=== PATIENT | female | born 1985 | race American Indian/Alaskan Native ===

== ENCOUNTER 2017-06-18 08:47 | Emergency (ER) | payer MEDICAID ==
[2017-06-18 09:27] LABS: Basophils % (Auto) 0.8 % (0.0-1.8); Eosinophils % (Auto) 0.1 % (0.0-4.3); Hematocrit 40.3 % (30.3-42.9); Hemoglobin 13.9 gm/dl (10.1-14.3); Mean Corpuscular HGB Conc 35 % (30-34); Mean Corpuscular Hemoglobin 33 pg (28-32); Mean Corpuscular Volume 96 fl (79-97); Platelet Count 262 K/mm3 (140-440); Red Blood Count 4.19 M/mm3 (3.65-5.03); Red Cell Distribution Width 12.5 % (13.2-15.2); White Blood Count 7.2 K/mm3 (4.5-11.0)
--- NOTE | 2017-06-18 09:36 | Emergency Department Report ---
Chief Complaint: Psych Stated Complaint: NOT EATING AND SLEEPING FOR 5 DAYS Time Seen by Provider: 06/18/17 09:31 - HPI History of Present Illness: patient is a 32 y/o female who presents due to insomnia and anorexia x 5 days. Patient had no medical or psych history. Patient was brought in by her mother. - ROS Review of Systems: no fever, no chill, decreased appetite. psych- hallucinations. - Exam Vital Signs: Vital Signs 06/18/17 09:03 Temperature 98.7 F Pulse Rate 87 Respiratory 16 Rate Blood Pressure 119/89 O2 Sat by Pulse 98 Oximetry Physical Exam: patient is alert but not oriented to time or situation. patient was laughing inappropriately in triage. patient could not answer any questions due to confusions. MSE screening note: Focused history and physical exam performed. Due to findings the following was ordered: ED Medical Decision Making - Lab Data Result diagrams: 06/18/17 09:12 - Medical Decision Making mental health pack was ordered. ED Disposition for MSE Condition: Stable
[2017-06-18 09:47] LABS: Anion Gap 23 mmol/L; BUN/Creatinine Ratio 20; Blood Urea Nitrogen 16 mg/dL (7-17); Calcium 8.9 mg/dL (8.4-10.2); Carbon Dioxide 21 mmol/L (22-30); Chloride 100.4 mmol/L (98-107); Glucose 83 mg/dL (65-100); Potassium 4.2 mmol/L (3.6-5.0); Sodium 140 mmol/L (137-145)
[2017-06-18 10:25] LABS: Urine Drugs of Abuse Note Disclamer
[2017-06-18 10:36] LABS: Bacteria,Urine 1+ /HPF (Negative); Bilirubin,Urine NEG (Negative); Blood,Urine LG (Negative); Ketones,Urine 80 mg/dL (Negative); Leukocyte Esterase,Urine TR (Negative); Mucus,Urine 3+ /HPF; Nitrite,Urine NEG (Negative); Urobilinogen,Urine < 2.0 mg/dL (<2.0)
[2017-06-18] MEDS ORDERED: ATIVAN IM PRN (10:43)
[2017-06-18] MEDS ORDERED: HALDOL IM PRN (10:43)
--- NOTE | 2017-06-18 10:44 | Emergency Department Report ---
ED General Adult HPI - General Chief complaint: Psych Stated complaint: NOT EATING AND SLEEPING FOR 5 DAYS Time Seen by Provider: 06/18/17 10:35 Source: patient, family, RN notes reviewed Mode of arrival: Ambulatory Limitations: Other (patient is psychotic and disorganized) - History of Present Illness Initial comments: This is a 32-year-old female, the patient is previously unknown to the provider. The patient is accompanied by her mother, Ms. Domitila Mcmanus; [phone] Patient is brought to the hospital by family for agitated behavior, not sleeping , restlessness, and bizarre thoughts. Patient reports that she is not homicidal or suicidal, however she reports that she thinks that she is , and she also states "get this sickness out of me." The symptoms have been constant for the past 5 days, mother reports that she thinks that the patient consumed cannabis. She is especially concerned about "K2." -: Gradual Severity scale (0 -10): 0 Consistency: constant Improves with: none Worsens with: none Associated Symptoms: other (patient is hyperreflexic, agitated, disorganized) - Related Data Home Medications Medication Instructions Recorded Confirmed Last Taken No Known Home Medications [No 06/18/17 06/18/17 Unknown Reported Home Medications] Allergies Allergy/AdvReac Type Severity Reaction Status Date / Time No Known Allergies Allergy Verified 06/18/17 09:09 ED Review of Systems ROS: Stated complaint: NOT EATING AND SLEEPING FOR 5 DAYS Other details as noted in HPI Constitutional: denies: fever Eyes: denies: vision change ENT: denies: epistaxis Respiratory: denies: cough Cardiovascular: as per HPI. denies: chest pain Gastrointestinal: denies: vomiting Genitourinary: as per HPI Musculoskeletal: as per HPI Neurological: confusion Psychiatric: as per HPI ED Past Medical Hx - Past Medical History Previous Medical History?: Yes Hx Hypertension: Yes - Surgical History Past Surgical History?: No - Social History Smoking Status: Never Smoker Substance Use Type: Alcohol - Medications Home Medications: Home Medications Medication Instructions Recorded Confirmed Last Taken Type No Known Home Medications [No 06/18/17 06/18/17 Unknown History Reported Home Medications] ED Physical Exam - General Limitations: Other (patient is disorganized and psychotic) General appearance: alert, in no apparent distress - Head Head exam: Present: atraumatic, normocephalic - Eye Eye exam: Present: normal appearance, PERRL, EOMI, other (visual acuity intact to finger counting, color perception, reading at a close distance). Absent: nystagmus - ENT ENT exam: Present: normal exam, normal orophraynx, mucous membranes moist, normal external ear exam - Neck Neck exam: Present: normal inspection, full ROM. Absent: tenderness, meningismus - Respiratory Respiratory exam: Present: normal lung sounds bilaterally. Absent: respiratory distress, wheezes, rales, rhonchi, stridor, chest wall tenderness, accessory muscle use, decreased breath sounds, prolonged expiratory - Cardiovascular Cardiovascular Exam: Present: regular rate, normal rhythm, normal heart sounds. Absent: bradycardia, tachycardia, irregular rhythm, systolic murmur, diastolic murmur, rubs, gallop - GI/Abdominal GI/Abdominal exam: Present: soft, normal bowel sounds. Absent: distended, tenderness, guarding, rebound, rigid, pulsatile mass - Extremities Exam Extremities exam: Present: normal inspection, full ROM, normal capillary refill. Absent: pedal edema, joint swelling, calf tenderness - Back Exam Back exam: Present: normal inspection, full ROM. Absent: tenderness, CVA tenderness (R), CVA tenderness (L), muscle spasm, paraspinal tenderness, vertebral tenderness - Neurological Exam Neurological exam: Present: alert, normal gait, other (Extraocular movements intact. Tongue midline. No facial droop. Facial sensation intact to light touch in the V1, V2, V3 distribution bilaterally. 5 and 5 strength in 4 extremities.. Sensation is intact to light touch in 4 extremities.). Absent: motor sensory deficit - Psychiatric Psychiatric exam: Present: agitated, manic. Absent: homicidal ideation, suicidal ideation - Skin Skin exam: Present: warm, dry, intact, normal color. Absent: rash ED Course Vital Signs 06/18/17 06/18/17 06/18/17 09:03 10:01 10:13 Temperature 98.7 F 99.4 F Pulse Rate 87 69 92 H Respiratory 16 12 18 Rate Blood Pressure 119/89 Blood Pressure 106/71 [Right] O2 Sat by Pulse 98 100 99 Oximetry 06/18/17 06/18/17 06/18/17 10:14 10:16 10:30 Temperature Pulse Rate 79 Respiratory 18 17 Rate Blood Pressure 96/75 108/66 Blood Pressure [Right] O2 Sat by Pulse 100 100 100 Oximetry 06/18/17 06/18/17 06/18/17 10:46 11:00 11:16 Temperature Pulse Rate 82 74 93 H Respiratory 19 16 13 Rate Blood Pressure 99/66 106/64 98/67 Blood Pressure [Right] O2 Sat by Pulse 100 100 100 Oximetry 06/18/17 06/18/17 06/18/17 11:30 11:46 12:00 Temperature 98.4 F Pulse Rate 86 94 H 99 H Respiratory 12 27 H 16 Rate Blood Pressure 104/57 104/57 104/72 Blood Pressure 104/72 [Right] O2 Sat by Pulse 100 100 100 Oximetry 06/18/17 06/18/17 06/18/17 12:16 12:30 12:46 Temperature Pulse Rate 93 H 92 H 91 H Respiratory 28 H 33 H 15 Rate Blood Pressure 104/72 104/72 104/72 Blood Pressure [Right] O2 Sat by Pulse 100 99 100 Oximetry 06/18/17 06/18/17 06/18/17 13:00 13:16 13:30 Temperature Pulse Rate 88 89 94 H Respiratory 21 22 23 Rate Blood Pressure 104/72 104/72 104/72 Blood Pressure [Right] O2 Sat by Pulse 99 98 98 Oximetry 06/18/17 06/19/17 06/19/17 16:00 09:37 09:39 Temperature 99.3 F 98.4 F Pulse Rate 96 H 108 H Respiratory 15 16 18 Rate Blood Pressure Blood Pressure 101/74 123/81 [Right] O2 Sat by Pulse 100 100 Oximetry 06/19/17 21:00 Temperature 98.8 F Pulse Rate 86 Respiratory 18 Rate Blood Pressure Blood Pressure 130/83 [Right] O2 Sat by Pulse 99 Oximetry ED Medical Decision Making - Lab Data Result diagrams: 06/18/17 09:12 06/18/17 09:12 Vital Signs 06/18/17 06/18/17 06/18/17 09:03 10:01 10:13 Temperature 98.7 F 99.4 F Pulse Rate 87 69 92 H Respiratory 16 12 18 Rate Blood Pressure 119/89 Blood Pressure 106/71 [Right] O2 Sat by Pulse 98 100 99 Oximetry 06/18/17 06/18/17 06/18/17 10:14 10:16 10:30 Temperature Pulse Rate 79 Respiratory 18 17 Rate Blood Pressure 96/75 108/66 Blood Pressure [Right] O2 Sat by Pulse 100 100 100 Oximetry 06/18/17 06/18/17 10:46 11:00 Temperature Pulse Rate 82 74 Respiratory 19 16 Rate Blood Pressure 99/66 106/64 Blood Pressure [Right] O2 Sat by Pulse 100 100 Oximetry Lab Results 06/18/17 06/18/17 06/18/17 Range/Units 09:12 09:12 09:12 WBC 7.2 (4.5-11.0) K/mm3 RBC 4.19 (3.65-5.03) M/mm3 Hgb 13.9 (10.1-14.3) gm/dl Hct 40.3 (30.3-42.9) % MCV 96 (79-97) fl MCH 33 H (28-32) pg MCHC 35 H (30-34) % RDW 12.5 L (13.2-15.2) % Plt Count 262 (140-440) K/mm3 Lymph % (Auto) 29.6 (13.4-35.0) % Bucks % (Auto) 6.5 (0.0-7.3) % Eos % (Auto) 0.1 (0.0-4.3) % Baso % (Auto) 0.8 (0.0-1.8) % Lymph # 2.1 (1.2-5.4) K/mm3 Bucks # 0.5 (0.0-0.8) K/mm3 Eos # 0.0 (0.0-0.4) K/mm3 Baso # 0.1 (0.0-0.1) K/mm3 Seg Neutrophils % 63.0 (40.0-70.0) % Seg Neutrophils # 4.5 (1.8-7.7) K/mm3 Sodium 140 (137-145) mmol/L Potassium 4.2 (3.6-5.0) mmol/L Chloride 100.4 (98-107) mmol/L Carbon Dioxide 21 L (22-30) mmol/L Anion Gap 23 mmol/L BUN 16 (7-17) mg/dL Creatinine 0.8 (0.7-1.2) mg/dL Estimated GFR > 60 ml/min BUN/Creatinine Ratio 20 % Glucose 83 (65-100) mg/dL Calcium 8.9 (8.4-10.2) mg/dL Total Creatine Kinase (30-135) units/L TSH (0.270-4.200) mlU/mL Free T4 (0.76-1.46) ng/dL HCG, Quant (0-4) mIU/mL Urine Color (Yellow) Urine Turbidity (Clear) Urine pH (5.0-7.0) Ur Specific Wideman (1.003-1.030) Urine Protein (Negative) mg/dL Urine Glucose (UA) (Negative) mg/dL Urine Ketones (Negative) mg/dL Urine Blood (Negative) Urine Nitrite (Negative) Urine Bilirubin (Negative) Urine Urobilinogen (<2.0) mg/dL Ur Leukocyte Esterase (Negative) Urine WBC (Auto) (0.0-6.0) /HPF Urine RBC (Auto) (0.0-6.0) /HPF U Epithel Cells (Auto) (0-13.0) /HPF Urine Bacteria (Auto) (Negative) /HPF Urine Mucus /HPF Salicylates (2.8-20.0) mg/dL Urine Opiates Screen Urine Methadone Screen Acetaminophen (10.0-30.0) ug/mL Ur Barbiturates Screen Ur Phencyclidine Scrn Ur Amphetamines Screen U Benzodiazepines Scrn Urine Cocaine Screen U Marijuana (THC) Screen Drugs of Abuse Note Plasma/Serum Alcohol < 0.01 (0-0.07) gm% 06/18/17 06/18/17 06/18/17 Range/Units 09:12 09:12 09:12 WBC (4.5-11.0) K/mm3 RBC (3.65-5.03) M/mm3 Hgb (10.1-14.3) gm/dl Hct (30.3-42.9) % MCV (79-97) fl MCH (28-32) pg MCHC (30-34) % RDW (13.2-15.2) % Plt Count (140-440) K/mm3 Lymph % (Auto) (13.4-35.0) % Bucks % (Auto) (0.0-7.3) % Eos % (Auto) (0.0-4.3) % Baso % (Auto) (0.0-1.8) % Lymph # (1.2-5.4) K/mm3 Bucks # (0.0-0.8) K/mm3 Eos # (0.0-0.4) K/mm3 Baso # (0.0-0.1) K/mm3 Seg Neutrophils % (40.0-70.0) % Seg Neutrophils # (1.8-7.7) K/mm3 Sodium (137-145) mmol/L Potassium (3.6-5.0) mmol/L Chloride (98-107) mmol/L Carbon Dioxide (22-30) mmol/L Anion Gap mmol/L BUN (7-17) mg/dL Creatinine (0.7-1.2) mg/dL Estimated GFR ml/min BUN/Creatinine Ratio % Glucose (65-100) mg/dL Calcium (8.4-10.2) mg/dL Total Creatine Kinase 65 (30-135) units/L TSH (0.270-4.200) mlU/mL Free T4 1.59 H (0.76-1.46) ng/dL HCG, Quant < 2 (0-4) mIU/mL Urine Color (Yellow) Urine Turbidity (Clear) Urine pH (5.0-7.0) Ur Specific Wideman (1.003-1.030) Urine Protein (Negative) mg/dL Urine Glucose (UA) (Negative) mg/dL Urine Ketones (Negative) mg/dL Urine Blood (Negative) Urine Nitrite (Negative) Urine Bilirubin (Negative) Urine Urobilinogen (<2.0) mg/dL Ur Leukocyte Esterase (Negative) Urine WBC (Auto) (0.0-6.0) /HPF Urine RBC (Auto) (0.0-6.0) /HPF U Epithel Cells (Auto) (0-13.0) /HPF Urine Bacteria (Auto) (Negative) /HPF Urine Mucus /HPF Salicylates (2.8-20.0) mg/dL Urine Opiates Screen Urine Methadone Screen Acetaminophen (10.0-30.0) ug/mL Ur Barbiturates Screen Ur Phencyclidine Scrn Ur Amphetamines Screen U Benzodiazepines Scrn Urine Cocaine Screen U Marijuana (THC) Screen Drugs of Abuse Note Plasma/Serum Alcohol (0-0.07) gm% 06/18/17 06/18/17 06/18/17 Range/Units 09:12 09:12 10:11 WBC (4.5-11.0) K/mm3 RBC (3.65-5.03) M/mm3 Hgb (10.1-14.3) gm/dl Hct (30.3-42.9) % MCV (79-97) fl MCH (28-32) pg MCHC (30-34) % RDW (13.2-15.2) % Plt Count (140-440) K/mm3 Lymph % (Auto) (13.4-35.0) % Bucks % (Auto) (0.0-7.3) % Eos % (Auto) (0.0-4.3) % Baso % (Auto) (0.0-1.8) % Lymph # (1.2-5.4) K/mm3 Bucks # (0.0-0.8) K/mm3 Eos # (0.0-0.4) K/mm3 Baso # (0.0-0.1) K/mm3 Seg Neutrophils % (40.0-70.0) % Seg Neutrophils # (1.8-7.7) K/mm3 Sodium (137-145) mmol/L Potassium (3.6-5.0) mmol/L Chloride (98-107) mmol/L Carbon Dioxide (22-30) mmol/L Anion Gap mmol/L BUN (7-17) mg/dL Creatinine (0.7-1.2) mg/dL Estimated GFR ml/min BUN/Creatinine Ratio % Glucose (65-100) mg/dL Calcium (8.4-10.2) mg/dL Total Creatine Kinase (30-135) units/L TSH 1.410 (0.270-4.200) mlU/mL Free T4 (0.76-1.46) ng/dL HCG, Quant (0-4) mIU/mL Urine Color Yellow (Yellow) Urine Turbidity Clear (Clear) Urine pH 5.0 (5.0-7.0) Ur Specific Wideman 1.033 H (1.003-1.030) Urine Protein 100 mg/dl (Negative) mg/dL Urine Glucose (UA) Neg (Negative) mg/dL Urine Ketones 80 (Negative) mg/dL Urine Blood Lg (Negative) Urine Nitrite Neg (Negative) Urine Bilirubin Neg (Negative) Urine Urobilinogen < 2.0 (<2.0) mg/dL Ur Leukocyte Esterase Tr (Negative) Urine WBC (Auto) 6.0 (0.0-6.0) /HPF Urine RBC (Auto) 5.0 (0.0-6.0) /HPF U Epithel Cells (Auto) 8.0 (0-13.0) /HPF Urine Bacteria (Auto) 1+ (Negative) /HPF Urine Mucus 3+ /HPF Salicylates (2.8-20.0) mg/dL Urine Opiates Screen Urine Methadone Screen Acetaminophen < 15.0 (10.0-30.0) ug/mL Ur Barbiturates Screen Ur Phencyclidine Scrn Ur Amphetamines Screen U Benzodiazepines Scrn Urine Cocaine Screen U Marijuana (THC) Screen Drugs of Abuse Note Plasma/Serum Alcohol (0-0.07) gm% 06/18/17 06/18/17 Range/Units 10:11 10:43 WBC (4.5-11.0) K/mm3 RBC (3.65-5.03) M/mm3 Hgb (10.1-14.3) gm/dl Hct (30.3-42.9) % MCV (79-97) fl MCH (28-32) pg MCHC (30-34) % RDW (13.2-15.2) % Plt Count (140-440) K/mm3 Lymph % (Auto) (13.4-35.0) % Bucks % (Auto) (0.0-7.3) % Eos % (Auto) (0.0-4.3) % Baso % (Auto) (0.0-1.8) % Lymph # (1.2-5.4) K/mm3 Bucks # (0.0-0.8) K/mm3 Eos # (0.0-0.4) K/mm3 Baso # (0.0-0.1) K/mm3 Seg Neutrophils % (40.0-70.0) % Seg Neutrophils # (1.8-7.7) K/mm3 Sodium (137-145) mmol/L Potassium (3.6-5.0) mmol/L Chloride (98-107) mmol/L Carbon Dioxide (22-30) mmol/L Anion Gap mmol/L BUN (7-17) mg/dL Creatinine (0.7-1.2) mg/dL Estimated GFR ml/min BUN/Creatinine Ratio % Glucose (65-100) mg/dL Calcium (8.4-10.2) mg/dL Total Creatine Kinase (30-135) units/L TSH (0.270-4.200) mlU/mL Free T4 (0.76-1.46) ng/dL HCG, Quant (0-4) mIU/mL Urine Color (Yellow) Urine Turbidity (Clear) Urine pH (5.0-7.0) Ur Specific Wideman (1.003-1.030) Urine Protein (Negative) mg/dL Urine Glucose (UA) (Negative) mg/dL Urine Ketones (Negative) mg/dL Urine Blood (Negative) Urine Nitrite (Negative) Urine Bilirubin (Negative) Urine Urobilinogen (<2.0) mg/dL Ur Leukocyte Esterase (Negative) Urine WBC (Auto) (0.0-6.0) /HPF Urine RBC (Auto) (0.0-6.0) /HPF U Epithel Cells (Auto) (0-13.0) /HPF Urine Bacteria (Auto) (Negative) /HPF Urine Mucus /HPF Salicylates < 0.3 L (2.8-20.0) mg/dL Urine Opiates Screen Presumptive negative Urine Methadone Screen Presumptive negative Acetaminophen (10.0-30.0) ug/mL Ur Barbiturates Screen Presumptive negative Ur Phencyclidine Scrn Presumptive negative Ur Amphetamines Screen Presumptive negative U Benzodiazepines Scrn Presumptive negative Urine Cocaine Screen Presumptive negative U Marijuana (THC) Screen Presumptive positive Drugs of Abuse Note Disclamer Plasma/Serum Alcohol (0-0.07) gm% - EKG Data -: EKG Interpreted by [facility] - EKG Data When compared to previous EKG there are: previous EKG unavailable 06/18/17 12:29 Normal sinus, 74 bpm, normal intervals, normal axis, biphasic T-wave in V3, suggestive of persistent juvenile T-wave inversion - Radiology Data Radiology results: report reviewed, image reviewed Noncontrast CT scan of the brain is negative for acute disease - Medical Decision Making Assessment and plan: Transient drug-induced psychosis, first episode of psychosis, thyroid dysfunction, bipolar with manic features Assessment and plan: 32-year-old female with bizarre behavior, disorganized, does not demonstrate the ability to care for herself, most likely with a temporary drug-induced psychosis. Patient walks with a steady gait, has a nonfocal neurologic examination, objective laboratory studies unremarkable, CT scan of the brain is negative, at this point in time, patient is placed on a 1013, psychiatry has been consult. It is not appear to be any immediate medical contraindication to psychiatric admission/evaluation and consultation at this time. Mother is requesting specific testing for K2, this facility/lab does not have the ability to run this testing. This was explained to her, and was also explained to her that given 5 days of symptoms there would be no specific treatment with the exception of supportive care at this time. Critical care attestation.: If time is entered above; I have spent that time in minutes in the direct care of this critically ill patient, excluding procedure time. ED Disposition Clinical Impression: Mood disorder Disposition: [id number]/TX-[id number] PSY HOSP/PSY UNIT Is pt being admited?: No Does the pt Need Aspirin: No Condition: Stable Referrals: PRIMARY CAREMD [Primary Care Provider] - 3-5 Days
--- NOTE | 2017-06-18 11:04 | Cat Scan Report ---
CT HEAD WITHOUT CONTRAST: HISTORY: Psychiatry workup, mental status changes. Serial contiguous axial images were obtained through the cranium. Intravenous contrast material was not administered. The ventricles are normal in size and appearance. There is no mass effect or midline shift. No areas of abnormally increased or decreased attenuation are seen. No mass lesion is seen. The mastoid air cells and visualized portions of the sinuses are normal. IMPRESSION: Cranial CT scan within normal limits.
[2017-06-19] MEDS ORDERED: GEODON IM ONE ×2 (10:21→10:24)
[2017-06-19 22:38] VITALS: BP 130/83
--- NOTE | 2017-06-19 22:55 | Consultation ---
History of Present Illness - Reason for Consult Reason for consult: disorganized Medications and Allergies Allergies Allergy/AdvReac Type Severity Reaction Status Date / Time No Known Allergies Allergy Verified 06/18/17 09:09 Home Medications Medication Instructions Recorded Confirmed Last Taken Type No Known Home Medications [No 06/18/17 06/18/17 Unknown History Reported Home Medications] Mental Status Exam - Vital signs Last Vital Signs Temp 98.8 F 06/19/17 21:00 Pulse 86 06/19/17 21:00 Resp 18 06/19/17 21:00 BP 130/83 06/19/17 21:00 Pulse Ox 99 06/19/17 21:00 Results Result Diagrams: 06/18/17 09:12 06/18/17 09:12 All other labs normal. Assessment and Plan Assessment and plan: CHIEF COMPLAINT IN PATIENTS WORDS: HISTORY OF PRESENT ILLNESS: This is a 32-year-old female with a no reported past psychiatric history who now presents secondary to recent intoxication on cannabis and is concerned about possibly doing some K2. PSYCHIATRIC REVIEW OF SYSTEMS: Substance: UDS + cannabis Detoxification/Withdrawal: none noted Depression: Withdrawn, isolated, low moods. Lina: no labile moods, not hyperverbal, no flight of ideas Psychosis: + AV, no VH, + paranoia, no grandiosity/erotomania Anxiety/ OCD/ PTSD: reports somatic symptoms, flashbacks, nightmares, avoidance , panic attacks Suicidality: passive SI w/o plan Other Self-Injurious Behavior: none currently, no recent SIB noted Violent/ Aggressive Behavior: none noted CURRENT MEDICATIONS: Per Medication Reconciliation ALLERGIES: NKDA PAST PSYCHIATRIC HISTORY: Inpatient: unknown Outpatient: has no psychiatrist/therapist Prior Suicide Attempts: unknown Prior Self-Injurious Behaviors: unknown PAST PSYCHIATRIC MEDICATION TRIALS: MEDICAL HISTORY: denies MENTAL STATUS EXAM: General Appearance: Dressed in hospital gown, in acute distress Sensorium/Consciousness: alert and responding to external stimuli Eye Contact: limited Attitude / Behavior: cooperative, but guarded Psychomotor & Musculoskeletal Activity: WNL Mood: anxious Affect: constricted Speech / Language: normal Thought Processes: disorganized,perseverative Thought Content: passive SI, no HI Perception: + AV, no VH Orientation: person, place, time, situation Judgment What would you do if you smelled smoke in a crowded movie theater?: poor/impulsive Insight: poor Intelligence Vocabulary, general fund of knowledge, educational level: Average Capacity of ADLs: Independent STRENGTHS: PSYCHOSOCIAL AND ENVIRONMENTAL STRESSORS: ASSESSMENT: SIPD Cannabis Abuse PLAN OF CARE: Refer patient for inpatient hospitalization
== END 2017-06-19 22:38 ==
LOC: EEVIPCON 08:47 → ED 08:47
DX: F39 Unspecified mood [affective] disorder (principal); I10 Essential (primary) hypertension
CPT/HCPCS: 36415; 70450; 80048; 80307; 81001; 81025; 82550; 84439; 84443; 84702; 85025; 93005; 93010; 96372; 99285; G0480; J2060; J3486; 80320

== ENCOUNTER 2021-03-24 05:57 | Day surgery (SDC) | payer MEDICAID, OTHER ==
--- NOTE | 2021-03-23 18:34 | History and Physical Report ---
History of Present Illness Date of examination: 03/23/21 History of present illness: Patient has been reassessed/reevaluated. H&P has been reviewed. No interval changes. History of Present Illness: 36 yobf diagnosed with missed . Patient's work up has included several transvaginal ultrasound which revealed arestested development with no heart activity with was present on her initial exam. Patient denies any vaginal bleeding or cramping Blood type O positive ]Past History : 4 Term Births: 2 Premature Births: 0 Living Children: 2 Para: 2 Mult. Births: 0 Prev : 0 Aborta: 1 Elect. Ab: 1 Spont. Ab: 0 Ectopics: 0 # 1 Delivery date: 01/24/2007 Weeks Gestation: 40 labor: no Delivery type: Hours of labor: 16 Anesthesia type: epidural Delivery location: [facility] Sex: Male weight: 6-? # 2 Delivery date: 2008 Delivery type: EAB # 3 Delivery date: 03/02/2008 Weeks Gestation: 39 labor: no Delivery type: Hours of labor: ? Anesthesia type: epidural Delivery location: [facility] [place] Sex: Female weight: 6-? [employer] History Uterine Surgery (not C/S): negative Operations: Breast Lumpectomy: Finger D&C: Hospitalizations: negative Anesthesia Complications: negative Abnormal PAP: negative Uterine Anomaly: negative CAITLIN Exposure: negative Infertility: negative Infection History HIV Risk Eval: low risk Hep B Immunized: yes Personal hx. of genital herpes: no Partner hx. of genital herpes: no Hx of STD: gonorrhea Other: Chlamydia Current Allergies: ASPIRIN (Critical) Past Medical History: IBS Past Surgical History: Breast Lumpectomy: Finger D&C: Family History Summary: Father - Has Family History of Hypertension - Entered On: 11/25/2020 Father - Has Family History of Diabetes - Entered On: 11/25/2020 Mother - Has Family History of Hypertension - Entered On: 11/25/2020 Social History: Patient is single Smoking History: Patient currently smokes every day. Patient has been counseled to quit. Risk Factors: Smoked Tobacco Use: Former smoker Cigarettes: Yes -- 1 pack(s) per day, Years Smoked: 10 Year Quit: 2016 Years Since Last Quit: 5 Smokeless Tobacco Use: Never Passive Smoke Exposure: no HIV High Risk Behavior: low risk Caffeine Use: 3 drinks per day Exercise: yes Seatbelt Use: 100 % No Dietary Counseling Reason: pn yes Alcohol Use: yes Type: occ Drug Use: yes Drug of Choice: marijuana Review of Systems General Denies fever, chills, sweats, anorexia, fatigue, weakness, malaise, weight loss and sleep disorder. Denies vaginal discharge, incontinence, dysuria, hematuria, urinary frequency, amenorrhea, menorrhagia, abnormal vaginal bleeding, pelvic pain, genital sores, decreased libido, painful periods, painful sex, urinary urgency, hot flashes, vaginal dryness, vaginal itching and vaginal odor. CV Denies chest pains, palpitations, syncope, dyspnea on exertion, orthopnea, PND and peripheral edema. Resp Denies cough, dyspnea at rest, excessive sputum, hemoptysis, wheezing and pleurisy. GI Denies nausea, vomiting, diarrhea, constipation, change in bowel habits, abdominal pain, melena, hematochezia, jaundice, gas/bloating, indigestion/heartburn, dysphagia and odynophagia. Breast Denies left breast lump, right breast lump, nipple discharge, bloody discharge from nipple, breast pain, abnormal mammogram and breast enlargement. Psych Denies depression, anxiety, irritability and mood swings. Past History Past Medical History: other (SEE HPI) Past Surgical History: Other (SEE HPI) Social history: single, full code, other (SEE HPI) Family history: other (SEE HPI) Medications and Allergies Allergies Allergy/AdvReac Type Severity Reaction Status Date / Time No Known Allergies Allergy Verified 06/18/17 09:09 Home Medications Medication Instructions Recorded Confirmed Last Taken Type No Known Home Medications [No 06/18/17 06/18/17 Unknown History Reported Home Medications] Review of Systems Constitutional: other (SEE HPI) Exam - Physical Exam Narrative exam: HEENT: normocephalic, no lesions or deformities Neck/Thyroid: supple, thyroid normal Skin no significant abnormal lesions or rashes .Tatoo(s) are present Chest: respiratory effort normal, clear to auscultation .Tatoo(s) are present Breasts: skin/areolae normal, no masses, no nipple discharge, no erythema/warmth/tenderness, and axillae normal. Nipple piecing present bilaterally .Tatoo(s) are present CV: regular, normal S1-S2, no murmur, no rub, no gallop Abdomen: soft, non-tender, no masses, bowel sounds normal .Tatoo(s) are present Musculoskeletal: grossly normal ROM in joints, no joint tenderness or muscle weakness Neuro: no gross anomalities Extremities: no discoloration or edema [employer] Exams Vulva/Vagina: normal appearance, no discharge, lesions. No evidence of cystocele or rectocele. Cervix: normal appearance, no lesions, no discharge Uterus: normal position, midline, mobile Adnexae: no masses or tenderness Rectovaginal: exam defered Assessment and Plan - Patient Problems (1) Missed with demise before 20 completed weeks of gestation Current Visit: No Status: Acute Plan to address problem: Diagnosis explained to patient . Questions answered. Medical and surgical treatment options discussed Discussed risks and benefits of expectant management, treatments with medications and dilatation and curretage. Patient desires definitive treatment Patient desires D&C Discussed risk of surgery including infection, bleeding and risk of perforating her uterus. Questions answered. Patient understands and desires to proceed (2) Irritable bowel syndrome Current Visit: No Status: Acute
[2021-03-24] MEDS ORDERED: LIDOCAINE PF 100 MG/5 ML (CARDIAC SYRINGE) IV ONE (07:00)
[2021-03-24] MEDS ORDERED: propofoL 200 MG/20 ML VIAL IV ONE (07:00)
[2021-03-24] MEDS ORDERED: LACTATED RINGERS 1,000 ML ONE (07:07)
[2021-03-24] MEDS ORDERED: MIDAZOLAM 2 MG/2 ML INJ ONE (07:13)
--- NOTE | 2021-03-24 07:14 | Anesthesia Day of Surgery ---
Anesthesia Day of Surgery - Day of Surgery Patient Examined: Yes Patient H&P Reviewed: Yes Patient is NPO: No Beta Blockers: No Cardiac Clearance: No (N/A)
--- NOTE | 2021-03-24 07:16 | Anesthesia Consultation ---
Anesthesia Consult and Med Hx - Airway Anesthetic Teeth Evaluation: Good (Braces) ROM Head & Neck: Adequate Mental/Hyoid Distance: Adequate Mallampati Class: Class I Intubation Access Assessment: Good - Pulmonary Exam CTA: No - Cardiac Exam Cardiac Exam: RRR - Pre-Operative Health Status ASA Pre-Surgery Classification: ASA2 Proposed Anesthetic Plan: General - Pulmonary Hx Smoking: Yes Hx Asthma: No Hx Respiratory Symptoms: No SOB: No COPD: No Home Oxygen Therapy: No Hx Pneumonia: No Hx Sleep Apnea: No - Cardiovascular System Hx Hypertension: Yes - Central Nervous System Hx Neuromuscular Disorder: No - Endocrine Hx Renal Disease: No Hx Thyroid Disease: No Hx Hypothyroidism: No Hx Hyperthyroidism: No - Other Systems Hx Alcohol Use: Yes (social drinker)
[2021-03-24] MEDS ORDERED: LACTATED RINGERS 1,000 ML IV SCH (07:30)
[2021-03-24] MEDS ORDERED: SILVER NITRATE APPLICATOR 1 EA TP ONE (07:48)
[2021-03-24] MEDS ORDERED: fentaNYL 100 MCG/2 ML INJ ONE (07:58)
[2021-03-24] MEDS ORDERED: ONDANSETRON 4 MG/2 ML INJ IV PRN (08:00)
[2021-03-24] MEDS ORDERED: METHYLERGONOVINE MALEATE 0.2 MG/ML VIAL IM SCH (08:00)
[2021-03-24] MEDS ORDERED: HYDROmorphone 1 MG/1 ML INJ IV PRN (08:00)
[2021-03-24] MEDS ORDERED: MIDAZOLAM 2 MG/2 ML INJ IV NR (08:00)
[2021-03-24] MEDS ORDERED: dexAMETHasone 20 MG/5 ML VIAL ONE (08:03)
[2021-03-24] MEDS ORDERED: SODIUM CHLORIDE 0.9% IRR 1,500 ML BOTTLE IR ONE (08:15)
--- NOTE | 2021-03-24 08:30 | Operative Report ---
Operative Report Operative Report: Date of procedure: March 24, 2021 Pre-operative diagnosis: Missed Post-operative diagnosis: Same Procedure name(s): Suction dilatation and curettage Surgeon: Adán Ziegler MD Cake Decorator: Anesthesia: MAC EBL: 50 mL Complications: None Findings: A large amount of tissue consistent with products of conception Specimen(s): Uterine contents Procedure: The patient was brought operating room where general anesthesia was induced without difficulty. Patient was placed in dorsal lithotomy position prepped and draped in the usual sterile manner. Rubber catheter was used to empty her bladder. Speculum placed in the vagina. Tenaculum was placed at 12:00. The cervix was dilated progressively with Hegar dilators. A 12 suction catheter was placed through the cervical os. Several passes of the suction catheter removed the uterine contents. A gentle curettage was done with a banjo curettte, until a gritty sensation was felt throughout the uterine cavity. Further suction with the suction curettage revealed no further products. All instruments were removed patient was hemostatic. She was awakened in the operating room and accompanied to recovery room in good condition.
--- NOTE | 2021-03-24 08:35 | Short Stay Summary ---
Short Stay Documentation Date of service: 03/24/21 - History Principal diagnosis: Missed H&P: dictated Past Medical History: other (SEE HPI) Past Surgical History: Other (SEE HPI) Social history: single, full code, other (SEE HPI) - Allergies and Medications Current Medications: Allergies aspirin Adverse Reaction (Verified 03/24/21 08:08) Vomiting Home Medications Medication Instructions Recorded Confirmed Last Taken Type DOXYCYCLINE Hyclate [Vibramycin 100 mg PO Q12HR #14 capsule 03/24/21 Unknown Rx CAP] Ibuprofen [Motrin] 800 mg PO TID PRN #30 tablet 03/24/21 Unknown Rx Active Medications Hydromorphone HCl (Hydromorphone 1 Mg/1 Ml Inj) 0.25 mg IV Q10MIN PRN PRN Reason: Pain, Moderate (4-6) Stop: 03/24/21 17:00 Hydromorphone HCl (Hydromorphone 1 Mg/1 Ml Inj) 0.5 mg IV Q10MIN PRN PRN Reason: Pain , Severe (7-10) Stop: 03/24/21 17:00 Lactated Ringer's (Lactated Ringers) 1,000 mls @ 125 mls/hr IV DIRECT ERWIN Last Admin: 03/24/21 07:10 Dose: 125 mls/hr Documented by: Methylergonovine Maleate (Methylergonovine Maleate 0.2 Mg/Ml Vial) 0.2 mg IM ONCE ERWIN Stop: 03/24/21 21:00 Midazolam HCl (Midazolam 2 Mg/2 Ml Inj) 2 mg IV PREOP NR Stop: 03/24/21 23:59 Last Admin: 03/24/21 07:23 Dose: 2 mg Documented by: Ondansetron HCl (Ondansetron 4 Mg/2 Ml Inj) 4 mg IV ONCE PRN PRN Reason: Nausea And Vomiting Stop: 03/24/21 18:00 - Physical exam General appearance: no acute distress Integumentary: no rash HEENT: Atraumatic Lungs: Clear to auscultation Breasts: deferred Heart: Regular rate Gastrointestinal: normal Female Genitourinary: normal Rectal Exam: deferred Extremities: no ischemia, pulses intact - Brief post op/procedure progress note Date of procedure: 03/24/21 (See dictated operative note for details) - Hospital course Hospital course: Patient was admitted underwent the above him procedure without any complications. Patient will be discharged with follow-up in office in 1-2 weeks for postop check. - Disposition Condition at discharge: Good Disposition: [id number] TO HOME OR SELFCARE - Discharge Diagnoses (1) Missed with demise before 20 completed weeks of gestation Status: Acute (2) Irritable bowel syndrome Status: Acute Short Stay Discharge Plan Activity: no restrictions Diet: regular Follow up with: ALVARO GARCIA [Primary Care Provider] - 7 Days Prescriptions: Ibuprofen [Motrin] 800 mg PO TID PRN #30 tablet PRN Reason: Pain DOXYCYCLINE Hyclate [Vibramycin CAP] 100 mg PO Q12HR #14 capsule
[2021-03-24] MEDS: HYDROmorphone 1 MG/1 ML INJ IV PRN ×4 (08:37→09:07)
[2021-03-24] MEDS ORDERED: IBUPROFEN 800 MG TAB PO PRN (09:00)
[2021-03-24 10:00] VITALS: BP 122/72
--- NOTE | 2021-03-24 14:25 | Post Anesthesia Evaluation ---
- Post Anesthesia Evaluation Patient Participated: Yes Airway Patent: Yes Stable Respiratory Function: Yes Nausea/Vomiting: No Temp > 96.8F: Yes Pain Manageable: Yes Adequeate Hydration: Yes Anesthesia Complications: No Block Receding Appropriately: Not Applicable Patient on Ventilator: No
== END 2021-03-24 09:35 | disposition home or self-care (01) ==
LOC: OR 05:57
PROVIDERS: ATTEND Obstetrics & Gynecology
DX: O02.1 Missed abortion (principal); I10 Essential (primary) hypertension; F32.9 Major depressive disorder, single episode, unspecified; Z79.899 Other long term (current) drug therapy; Z98.890 Other specified postprocedural states
CPT/HCPCS: 59820; 88305; J1100; J1170; J2001; J2210; J2250; J2405; J2704; J3010; J7120